=== PATIENT | male | born 1950 | race Two or more races ===

== ENCOUNTER 2024-08-13 06:24 | Day surgery (SDC) | payer OTHER, SELFPAY ==
[2024-07-28 11:15] LABS: Hematocrit 44.3 % (39.0-52.0); Hemoglobin 14.9 g/dL (13.0-18.0); Mean Corp Hgb Conc. 33.6 g/dL (33.0-37.0); Mean Corpuscular Hgb 30.3 pg (27.0-31.0); Mean Corpuscular Volume 90.2 fL (80.0-94.0); Platelet Count 206 10^3/uL (130-400); Red Blood Cell Count 4.91 10^6/uL (4.70-6.10); Red Cell Dist. Width 14.3 % (11.5-14.5); White Blood Cell Count 5.3 10^3/uL (4.8-10.8)
[2024-07-28 13:11] LABS: Blood Urea Nitrogen 15 mg/dl (9-20); Calcium 9.5 mg/dl (8.4-10.2); Carbon Dioxide 31 mmol/L (22-30); Chloride 102 mmol/L (98-107); Glucose 89 mg/dl (70-99); Potassium 4.3 mmol/L (3.5-5.1); Sodium 140 mmol/L (135-145); eGFR > 60.00
[2024-07-28 13:32] VITALS: BMI 23.9
--- NOTE | 2024-08-02 15:22 | PTCARENOTE ---
Abnormal ECG 07/28/24, reviewed by Dr Portillo, no further intervention requested.
[2024-08-13] VITALS (9 sets, daily range): BP systolic 116–149; BP diastolic 65–85; BMI 23.9
[2024-08-13] MEDS: TYLENOL 1000 MG PO (09:31)
[2024-08-13] MEDS: NORMOSOL-R/PLASMALYTE-A 1000 IV (09:32)
--- NOTE | 2024-08-13 10:17 | HP.FOC2 ---
Focused History & Physical
Chief Complaint
HPI:
Chief Complaint: Right inguinal hernia
HPI / Indication for Planned Procedure: 73-year-old male recently seen in outpatient surgical evaluation secondary to a longstanding history of a right inguinal hernia. Physical examination confirmed the presence of a readily apparent right
inguinal hernia with scrotal extension which was reducible in the supine position. He presents today for scheduled operative correction.
Relevant Past Medical History: Negative (Patient denies any active or significant past medical history)
Relevant Social History: Negative
Relevant Family History: Negative
Relevant Past Surgical History: Positive for (Open left inguinal herniorrhaphy at 10 years old)
Review of Systems
Review of Pertinent Systems: All Systems Negative
Medication
See Medication form for detailed medications: Yes
Medication List (including Herbals & OTC):
No Meds [No Current Medications] 08/06/24
Medications Reviewed: Yes
Allergies and Reactions
Patient has Allergies: No
Noted Allergies and Reactions:
Allergy/AdvReac Type Severity Reaction Status Date / Time
No Known Allergies Allergy Verified 08/13/24 09:11
Pertinent Physical Exam
All Other Systems: Negative
Head/Neck: Normal
Lungs: Normal
Heart: Normal
Abdomen: Other (Large right inguinal hernia, reducible)
Extremities: Normal
Neurological: Normal
Diagnosis / Assessment
73-year-old male presenting for scheduled operative correction symptomatic right inguinal hernia
Plan / Procedure
Robotic assisted laparoscopic repair right inguinal hernia with mesh
Anesthesia/Sedation to be done by Anesthesia Provider: Yes
--- NOTE | 2024-08-13 10:18 | W.SUR.PREOP ---
Pre-Operative Surgical Note
-
I have examined this patient prior to the performance of the scheduled procedure.
The patient's condition is unchanged from the time of the current History and
Physical and the patient is able to undergo the scheduled procedure.
--- NOTE | 2024-08-13 12:37 | W.IMMPOSTOP ---
Surgical Immed Post Op Note
-
Primary Surgeon: Martínez Gordon MD
Assisting Surgeon: Aidee Blanchard PA-C
Pre-op Diagnosis: Right inguinal hernia
Post-op Diagnosis: Right inguinal hernia; indirect with scrotal extension/direct component as well
Procedure Performed: Robotic assisted laparoscopic BRIA repair right inguinal hernia with mesh; 3D max mid extra-large
Anesthesia Type: GETA +0.25% Marcaine
Specimen / Cultures: None
Estimated Blood Loss: 4 mL
Complications: none immediate
Operative Findings: Large right indirect inguinal hernia, entire hernia sac reduced. No additional contents within the inguinal hernia. Smaller indirect inguinal hernia component. 3D max mid weight extra-large mesh repair. Left inguinal region
normal. No additional intra-abdominal findings.
The assistance of Aidee Blanchard PA-C was required due to the complexity of the procedure. During the procedure Aidee Blanchard PA-C assisted with port placement, robotic instrumentation and suture material exchanges, and closure of the surgical incision
sites. I was present for the entirety of the operative procedure.
Patient's significant other, Tiffany updated postoperatively via phone call
--- NOTE | 2024-08-13 12:41 | OR.RPT ---
Operative Report
Operative Report
Date of operative procedure: 08/13/2024
Primary Surgeon: Martínez Gordon MD
Assisting Surgeon: Aidee Blanchard PA-C
Pre-op Diagnosis: Right inguinal hernia
Post-op Diagnosis: Right inguinal hernia; indirect/smaller direct component
Procedure Performed: Robotic assisted laparoscopic BRIA repair right inguinal hernia with mesh; 3D max extra-large mid weight
Anesthesia Type: GETA +0.25% Marcaine
Specimen / Cultures: None/none
Estimated Blood Loss: 4 mL
Complications: None immediate
Indications for operative procedure: 73-year-old male recently seen in outpatient surgical evaluation secondary to a longstanding history of a right inguinal hernia. Physical examination confirmed the presence of a readily apparent right inguinal
hernia with scrotal extension which was reducible in the supine position. I reviewed with the patient treatment options and he wished to pursue surgical correction. We discussed various operative approaches to repair and have elected to proceed
with a robotic assisted laparoscopic right inguinal herniorrhaphy with mesh. The anticipated operative procedure was fully reviewed in detail with the patient preoperatively obtaining written informed consent.
Brief summary of operative Findings: Large right indirect inguinal hernia, entire hernia sac reduced. No additional contents within the inguinal hernia. Smaller indirect inguinal hernia component. 3D max mid weight extra-large mesh repair secured
to Aamir's ligament with 2-0 Vicryl stitch x 2. Hernia sac suture ligated at the neck with 2-0 Vicryl. Peritoneal flap closed with 2-0 Monocryl STRATAFIX spiral. Left inguinal region normal. No additional intra-abdominal findings.
Operation detail: The patient was identified in the preoperative holding area. I confirmed the surgical site and side with the patient preoperatively which was then marked and initialed by myself. He was interviewed by the anesthesia and nursing
staff then brought back to the operating room. The patient was placed on the operating table in supine position. The bilateral upper extremities were carefully padded and tucked at the side utilizing the arm guard positioning system. Pneumatic
compression boots were on the bilateral lower extremities. Following induction of general endotracheal anesthesia the patient was administered Ancef 2 g IV for prophylactic antibiotic coverage. The patient's anterior abdominal wall was now widely
and sterilely prepped with ChloraPrep and then draped in the usual manner. The surgical timeout was completed and the procedure was confirmed.
I initially proceeded with Veress needle insufflation in the left subcostal midclavicular line location. Once insufflated to 12 mmHg pressure then a left midclavicular line 8 mm trocar was then placed. The robotic scope was inserted, there was no
evidence of iatrogenic injury from access. The Veress needle was withdrawn. An epigastric 8 mm trocar was placed just to the right off of the midline. A right midclavicular line 8 mm trocar was placed. The patient was then transition into
Trendelenburg to expose the inguinal/pelvic space and the robot was docked.
At the surgeon console inspection of the pelvis confirmed the presence of a large right indirect inguinal hernia about 3 to 4 fingerbreadths in diameter. No adhesions/contents within the hernia sac. There were no additional incidental
intra-abdominal findings.
I initially began with creation of a peritoneal flap at the level of the right ASIS to the right medial umbilical ligament. The preperitoneal plane was now established along the length of the flap and developed inferiorly down to the inguinal
space. The medial dissection proceeded until the notch of the pubic symphysis was exposed at the midline followed by Aamir's ligament on the right side. Aamir's ligament was now cleared through the direct and femoral space. A small direct
inguinal hernia was noted and the preperitoneal fat was completely reduced off of the pseudosac. The femoral space was normal. The underside of Aamir's ligament was exposed as well. The peritoneal flap was now mobilized laterally down to the
internal ring. The hernia sac was then grasped and begun to be reduced out of the inguinal canal and off of the cord structures from an anterior lateral to anterior medial approach. I carefully continued to reduce the hernia sac off of the
cremasteric fibers and cord contents all the way to the apex of the hernia sac. Next the hernia sac was now reduced off of its posterior attachments with identification of the vas and the spermatic cord vessels. The hernia sac dissection continued
back proximally past the turn in the right vas deferens and then overlying the right iliac space to meet up with the medial dissection. The posterior dissection continued until there was wide separation between the vas and the spermatic cord
vessels. The dissection continued posterior laterally for full exposure of the myopectineal orifice. There was no lipomatous component of the cord structures or inguinal canal.
With the myopectineal orifice now completely exposed hemostasis was confirmed. A 3D max extra-large mid weight mesh was utilized for repair. The mesh was positioned parallel to the ileopubic tract. It was secured at 2 separate locations inferior
medially on Aamir's ligament with 2 simple interrupted 2-0 Vicryl sutures. The patient was now begun to be taken out of Trendelenburg to confirm that the posterior aspect of the mesh was lying flat and that there was no shelling or undermining of
the mesh by the peritoneal edge. The peritoneal flap was now closed with a 2-0 Monocryl STRATAFIX spiral suture with a running Thurmond type stitch. The hernia sac was ligated with a 2-0 Vicryl suture ligature due to the size of it.
A flexible suction catheter was placed through an 8 mm trocar and introduced into the peritoneal flap to evacuate the air out of the preperitoneal space. This again confirmed good positioning of the inguinal hernia mesh. There was no shelling or
folding of the mesh and no undermining and mesh by the peritoneal edge. The peritoneal covering of the mesh was completely intact.
At this point the robot was undocked. All sponge instrument and needle counts were confirmed to be correct x 2. The CO2 insufflation was now carefully evacuated out of the abdominal cavity. The trocar sites were removed as well as the flexible
suction catheter. Skin was closed with 4-0 Monocryl. Sterile surgical glue dressings were applied. The patient tolerated the procedure well and was transferred to the recovery unit for routine postoperative monitoring.
The assistance of Aidee Blanchard PA-C was required due to complexity of surgery. During the procedure Aidee Blanchard PA-C assisted with port placement, robotic instrumentation and suture material exchanges as well as closure of the surgical sites. I
was present for the entirety of the operative procedure.
[2024-08-13] MEDS: DILAUDID 0.25 MG IV (13:09)
== END 2024-08-13 14:30 | disposition home or self-care (01) ==
LOC: SDS 06:24
PROVIDERS: ATTENDING PHYSICIAN Surgery; FAMILY PHYSICIAN Internal Medicine
DX: K40.90 Unilateral inguinal hernia, without obstruction or gangrene, not specified as recurrent (principal)
CPT/HCPCS: 49650; 36415; 80048; 85027; 93005; C1781